=== PATIENT | female | born 1995 | race Caucasian/White ===

== ENCOUNTER 2018-05-31 21:47 | Day surgery (SDC) | payer OTHER ==
[2018-05-31 22:34] VITALS: BP 114/68; TEMP 98.6; BMI 30.3
--- NOTE | 2018-06-01 07:33 | SS ---
DATE OF EVALUATION: 05/31/2018 REGULAR PHYSICIAN: Lane Guerrero M.D. EVALUATING PHYSICIAN: David Miranda M.D. CHIEF COMPLAINT: Contractions at home since earlier this evening. HISTORY OF PRESENT ILLNESS: Ms. Burciaga is a 22-year-old white G2, P1-0-0-1 with an estimated date o f confinement of 06/12/2018 who presents complaining of uterine contractions since earlier tonight. She denies ruptured membranes or vaginal bleeding. Of note, is the fact that she had a cerclage shanell humberto at 37 weeks. Her care has been with Dr. Guerrero. PAST OBSTETRICAL HISTORY: Includes her last complicated by an emergency cerclage although she did go on to deliver at term. PAST MEDICAL HISTORY: None. PAST SURGICAL HISTORY: Cerclage placement x2. CURRENT MEDICATIONS: vitamins. ALLERGIES: PENICILLIN which gives her hives. SOCIAL HISTORY: She denies tobacco or alcohol use. FAMILY HISTORY: Unremarkable. REVIEW OF SYSTEMS: She denies nausea, vomiting, fever, chills, vaginal bleeding or decreased m ovement. PHYSICAL EXAMINATION: VITAL SIGNS: Stable. She is afebrile. GENERAL: She is pleasant and certainly in no acute distress. ABDOMEN: Soft, nontender and gravid. PELVIC: The cervix is approximately 1 cm dilated, minimally effaced and posterior per the labor nurs e's exam. heart rate tracing is reassuring with spontaneous accelerations. Over a 30 minute p eriod of observation, she only has a single contraction on the monitor. ASSESSMENT: 1. A 38-week intrauterine . 2. No evidence of active labor at this time. PLAN: The patient will be discharged home. She was given complete labor precautions. Dr. Guerrero was notified of her findings tonight.
== END 2018-05-31 23:00 | disposition home or self-care (01) ==
LOC: L&D/OP 21:47
PROVIDERS: ATTEND Obstetrics & Gynecology
DX: O47.1 False labor at or after 37 completed weeks of gestation (principal); Z88.0 Allergy status to penicillin; Z3A.38 38 weeks gestation of pregnancy
CPT/HCPCS: 99282

== ENCOUNTER 2018-06-04 00:13 | Inpatient (IN) | payer OTHER ==
[2018-06-06 07:07] VITALS: BMI 30.2
[2018-06-06] MEDS ORDERED: Acetaminophen 500 MG TAB PO PRN (07:07)
[2018-06-06] MEDS ORDERED: Lidocaine 1% (PF) 30 ML VIAL SC PRN (07:07)
[2018-06-06] MEDS ORDERED: Docusate 100 MG CAP PO PRN (07:07)
[2018-06-06] MEDS ORDERED: Misoprostol 200 MCG TAB PR PRN (07:07)
[2018-06-06] MEDS ORDERED: Promethazine HCl 25 MG/ML VIAL IM PRN (07:07)
[2018-06-06] MEDS ORDERED: Ondansetron HCl/PF 4 MG/2 ML Vial IVP PRN ×2 (07:07→13:44)
[2018-06-06] MEDS ORDERED: NS w/ Oxytocin 10 units 500 ML IV SCH (07:07)
[2018-06-06] MEDS ORDERED: NS / Oxytocin 40 units/1000ml 1,000 ML IV PRN (07:07)
[2018-06-06] MEDS ORDERED: Diphenoxylate HCl/Atropine Tablet PO PRN ×2 (07:07)
[2018-06-06] MEDS ORDERED: Ibuprofen 800 MG TAB PO PRN (07:07)
[2018-06-06] MEDS ORDERED: HYDROcodone/Acetaminophen 5/325 mg Tablet PO PRN ×2 (07:07)
[2018-06-06] MEDS ORDERED: Butorphanol Tartrate 1 MG/ML VIAL SLOW IVP PRN (07:07)
[2018-06-06] MEDS ORDERED: Bupivacaine 0.5% 20 ML, fentaNYL Citrate/PF 400 MCG in Sodium Chloride 0.9% 72 ML EPIDURAL SCH (07:15)
[2018-06-06] MEDS ORDERED: DISCONTINUE ALL PREVIOUS NARCOTICS FS SCH (07:15)
[2018-06-06] MEDS: Lactated Ringer's 1,000 ML IV SCH ×2 (07:31→10:10)
[2018-06-06] MEDS ORDERED: Clindamycin/D5W 900 mg/50 ml Premix Bag ONE (07:44)
[2018-06-06] MEDS ORDERED: Clindamycin/D5W 900 MG in Premix Bag 1 BAG IVPB SCH (08:00)
[2018-06-06 08:35] LABS: HBSAg Index 0.21 S/CO (0-0.99); Hep B Surf Ag Non-Reactive S/CO (NonReactive)
[2018-06-06 08:36] LABS: Syphilis Antibody Nonreactive (Nonreactive); Syphilis Antibody Index 0.04 S/CO (<1.00 Non-Reactive)
[2018-06-06] MEDS ORDERED: Dextrose 5%-Lactated Ringers 1,000 ML IV SCH (08:45)
[2018-06-06 08:57] LABS: Hemoglobin 8.3 g/dL (12.0-16.0); Mean Corpuscular HGB CONC 32.7 g/dL (32.0-36.0); Mean Corpuscular Hemoglobin 23.8 pg (27.0-31.0); Mean Corpuscular Volume 72.8 fL (78.0-98.0); Mean Platelet Volume 10.3 fL (7.4-10.4); Platelet Count 178 thou/uL (130-400); RBC Distribution Width 17.7 % (11.5-14.5); Red Blood Cell (RBC) Count 3.46 mill/uL (4.20-5.40); White Blood Cell (WBC) Count 12.5 thou/uL (4.8-10.8)
[2018-06-06] MEDS ORDERED: Bupivacaine 0.25% HCL 30 ML VIAL ONE (11:11)
[2018-06-06] MEDS ORDERED: Methylergonovine 0.2 MG TAB ONE (13:13)
[2018-06-06] MEDS ORDERED: Methylergonovine 0.2 MG/ML VIAL ONE (13:14)
[2018-06-06] MEDS ORDERED: Milk Of Magnesia 30 ML UDCUP PO PRN (13:44)
[2018-06-06] MEDS ORDERED: Zolpidem Tartrate 5 MG TAB PO PRN (13:44)
[2018-06-06] MEDS ORDERED: Bisacodyl 10 MG SUPP PR PRN (13:44)
[2018-06-06] MEDS ORDERED: Preparation H Ointment 28 GM TUBE PR PRN (13:44)
[2018-06-06] MEDS ORDERED: Lanolin Ointment 7 GM TUBE TOP PRN (13:44)
[2018-06-06] MEDS ORDERED: Benzocaine/Menthol 20-0.5% 60 ML CAN TOP PRN (13:44)
[2018-06-06] MEDS ORDERED: Acetaminophen/Codeine 30-300mg Tablet PO PRN ×2 (13:44)
[2018-06-06] MEDS ORDERED: diphenhydrAMINE 25 MG CAP PO PRN (13:44)
[2018-06-06] MEDS ORDERED: NS / Oxytocin 40 units/1000ml 1,000 ML IV SCH (13:45)
[2018-06-06] MEDS ORDERED: NS / Oxytocin 40 units/1000ml 1,000 ML ONE (15:05)
[2018-06-06] MEDS: Ibuprofen 800 MG TAB PO SCH ×2 (16:29→21:33)
[2018-06-06] MEDS: Ferrous Sulfate 325 MG TAB PO SCH (18:44)
[2018-06-06] MEDS: Docusate Calcium (SURFAK) 240 MG CAP PO SCH (21:33)
[2018-06-07] MEDS: Ibuprofen 800 MG TAB PO SCH ×2 (05:51→13:44)
[2018-06-07] MEDS: Lactated Ringer's 1,000 ML IV SCH ×2 (05:53→16:49)
[2018-06-07] MEDS: Ferrous Sulfate 325 MG TAB PO SCH (08:50)
[2018-06-07] MEDS: Docusate Calcium (SURFAK) 240 MG CAP PO SCH (08:51)
[2018-06-07] MEDS ORDERED: Prenatal Vitamin 1 TAB PO SCH (09:00)
[2018-06-07] MEDS ORDERED: Adacel (T-DAP) 0.5 ML VIAL IM ONE (09:00)
[2018-06-07] MEDS ORDERED: Acetaminophen 325 MG TAB PO PRN (09:09)
[2018-06-07 12:17] VITALS: BP 100/57; TEMP 97.6
== END 2018-06-07 18:30 | disposition home or self-care (01) | DRG 775 ==
LOC: EDSTATUS 15:40 → L&D 06-06 05:51 → 3SE 06-06 16:03
PROVIDERS: ADMIT Obstetrics & Gynecology; ATTEND Obstetrics & Gynecology
PROC: 10E0XZZ Delivery of Products of Conception, External Approach (ICD-10-PCS; principal; 2018-06-06)
PROC: 3E033VJ Introduction of Other Hormone into Peripheral Vein, Percutaneous Approach (ICD-10-PCS; 2018-06-06)
PROC: 10907ZC Drainage of Amniotic Fluid, Therapeutic from Products of Conception, Via Natural or Artificial Opening (ICD-10-PCS; 2018-06-06)
DX: O99.824 Streptococcus B carrier state complicating childbirth (principal); Z3A.39 39 weeks gestation of pregnancy; Z37.0 Single live birth
CPT/HCPCS: 36415; 51702; 85027; 86780; 86850; 86900; 86901; 87340; J2001; J2210; J2405; J3010; J3490; J7050; S0020

== ENCOUNTER 2018-10-18 20:15 | Observation (INO) | payer OTHER ==
[2018-10-18 20:41] LABS: #Basophils 0.1 thou/uL (0.0-0.2); #Eosinphils 0.4 thou/uL (0.0-0.7); #Lymphocytes 2.3 thou/uL (1.20-3.40); #Monocytes 0.7 thou/uL (0.11-0.59); #Neutrophils 7.4 thou/uL (1.40-6.50); %Basophils 0.8 % (0.0-1.0); %Eosinophils 3.4 % (0.0-10.0); %Lymphocytes 21.5 % (21.0-51.0); %Monocytes 6.1 % (0.0-10.0); %Neutrophils 68.2 % (42.0-75.0); Hemoglobin 12.1 g/dL (12.0-16.0); Mean Corpuscular HGB CONC 33.3 g/dL (32.0-36.0); Mean Corpuscular Hemoglobin 28.6 pg (27.0-31.0); Mean Platelet Volume 9.7 fL (7.4-10.4); Platelet Count 228 thou/uL (130-400); RBC Distribution Width 14.8 % (11.5-14.5); Red Blood Cell (RBC) Count 4.22 mill/uL (4.20-5.40); White Blood Cell (WBC) Count 10.8 thou/uL (4.8-10.8)
[2018-10-18 20:55] LABS: Bilirubin Negative (Negative); Blood, Urine Negative (Negative); Clarity CLEAR (Clear); Glucose, Urine (Dipstick) Negative (Negative); Leukocyte Negative (Negative); Nitrite Negative (Negative); Protein, Urine (Dipstick) Negative (Neg-Trace); Specific Gravity, Urine 1.031 (1.002-1.036); Urobilinogen 0.2 mg/dL (0.2-1.0)
[2018-10-18 20:58] LABS: ALT (SGPT) 12 U/L (8-55); AST (SGOT) 19 U/L (5-34); Albumin 4.4 g/dL (3.5-5.0); Alkaline Phosphatase 98 U/L (40-150); Anion Gap 13 mmol/L (10-20); BUN (Urea Nitrogen) 15 mg/dL (7.0-18.7); Bilirubin, Total 0.2 mg/dL (0.2-1.2); Calc. Creatinine Clearance 0 mL/min (70-130); Calcium 9.1 mg/dL (7.8-10.44); Carbon Dioxide 25 mmol/L (22-29); Chloride 107 mmol/L (98-107); Estimated GFR-MDRD 63; Globulin 3.9 g/dL (2.4-3.5); Glucose 103 mg/dL (70-105); Lipase 48 U/L (8-78); Potassium 4.3 mmol/L (3.5-5.1); Protein, Total 8.3 g/dL (6.0-8.3); Sodium 141 mmol/L (136-145)
[2018-10-18 21:24] LABS: Pregnancy Test - Urine (BHCG) Negative (Negative); Pregu Control Background? CLEAR/WHITE (CLR/WHITE); Pregu Control Bar Appear? YES (CONTROL BAR); Specific Gravity 1.031 (1.002-1.036)
--- NOTE | 2018-10-18 23:10 | ULT ---
RIGHT UPPER QUADRANT ULTRASOUND: INDICATIONS: Right upper quadrant pain. FINDINGS: No focal hepatic lesion. There is evidence of gallbladder distention, cholelithiasis, and gallbladde r sludge. Wall thickening of the gallbladder is present, measuring approximately 5 mm. There is int ramural edema of the gallbladder also present. Rojas sign is reported as positive. The common duct measures 3 mm, within normal limits. IMPRESSION: Cholelithiasis and evidence of acute cholecystitis. Surgical consultation is warranted. POS: ANABEL
[2018-10-18] MEDS ORDERED: Ondansetron PF 4 MG/2 ML Vial ONE (23:35)
[2018-10-18] MEDS ORDERED: Morphine 4 MG/ML VIAL ONE (23:35)
--- NOTE | 2018-10-19 00:46 | HP ---
HISTORY OF PRESENT ILLNESS: A 23-year-old woman. She is G2, P2, presented to emergency department. The patient gives a history of recurrent epigastric and right upper quadrant abdominal pain, which is postprandial over the last 1 month. The pain has been persistent since upon awakening this morning, rated at 9/10 and associated with multiple episodes of nonbilious emesis. The pain at this time is of the greatest intensity and not relieved by [id number] analgesics as previously. The patient denies any fevers or chills. She endorses abdominal bloating and flatulence. PAST MEDICAL HISTORY: She denies any previous medical problems. PAST SURGICAL HISTORY: Cervical cerclage x2. SOCIAL HISTORY: She is a ewkk-je-llam mom of 2 little children. She denies any cigarette smoking, ethanol, or illicit drug abuse. FAMILY HISTORY: Significant for mother who in her 50s with complications of gastric carcinoma and Crohn disease. Father has thyroid disease. Maternal grandmother with essential hypertension. She has no family history of heart disease. OUTPATIENT MEDICATIONS: None except for aikj-mxx-oirxlns analgesics. ALLERGIES: TO PENICILLIN. REVIEW OF SYSTEMS: Ten-point review of systems essentially unremarkable except as stated in past medical history and chief complaint. PHYSICAL EXAMINATION: GENERAL: This reveals a 23-year-old normally developed woman, who is otherwise coherent and interactive and appears stated age. The patient is alert and oriented x3. She appears to be in no acute distress at time of my evaluation. HEENT: Reveals normocephalic and atraumatic. The patient's pupils are equal, round, and reactive to light and accommodation. Extraocular muscles are intact bilaterally. She has no scleral icterus present. HEART: Reveals regular rate and rhythm. No murmurs or gallops auscultated. LUNGS: Clear to auscultation bilaterally. Her breathing regular and nonlabored. ABDOMEN: Soft with right upper quadrant tenderness to palpation. She has a positive Rojas's sign. Liver and spleen are otherwise nonpalpable below costal margins. EXTREMITIES: Reveal 2+ radial and pedal pulses bilaterally. Ankle edema is present. NEUROLOGIC: Reveals no focal deficits present. LABORATORY FINDINGS: Today includes a CBC with 10,800 white blood cells, hemoglobin and hematocrit 12.1 and 36.3 respectively, and platelet count is 228,000. Metabolic profile; sodium 141, potassium is 4.3, chloride is 107, bicarb is 25, BUN 15, creatinine is 1.08, and glucose is 103. AST and ALT normal at 19 and 12 respectively. Serum lipase is also normal at 48. I personally reviewed the abdominal ultrasound, which is remarkable for multiple intraluminal gallstones present. There is a relatively large stone impacted in the gallbladder neck. The patient has gallbladder wall thickening and pericholecystic fluid present. The common bile duct size is normal in diameter for this patient's age at 3.6 mm. IMPRESSIONS: Acute cholecystitis with cholelithiasis. RECOMMENDATION: Laparoscopic cholecystectomy. I have informed the patient of the above findings and recommendations. I have also informed her of the risks and benefits of proposed surgery to include but not limited to bleeding, infection, injury to bile duct or surrounding structures. The patient indicates understanding of information I provided her today in the presence of her nurse. I have answered her questions. The patient is going to consent for her admission and surgical intervention. Job ID: [id number]
[2018-10-19] MEDS ORDERED: Fentanyl 100 MCG/2 ML VIAL ONE ×4 (01:54→07:03)
[2018-10-19] MEDS ORDERED: Ondansetron HCl/PF 4 MG/2 ML Vial IVP PRN ×2 (01:59→05:37)
[2018-10-19] MEDS ORDERED: Promethazine HCl 25 MG/ML VIAL IM PRN ×3 (01:59→06:33)
[2018-10-19] MEDS ORDERED: Promethazine HCl 25 MG/ML VIAL SLOW IVP PRN ×2 (01:59→05:37)
[2018-10-19] MEDS ORDERED: Famotidine/PF 20 mg/2ml Vial ONE ×2 (05:01→05:11)
[2018-10-19] MEDS ORDERED: Bupivacaine/Epinephrine 0.25% 30 ML VIAL ONE (05:30)
[2018-10-19] MEDS ORDERED: Dextrose 5% in Water 1,000 ML IV PRN (06:33)
[2018-10-19] MEDS ORDERED: Calcium Carbonate 500 MG ChewTAB PO PRN (06:33)
[2018-10-19] MEDS ORDERED: Dextrose 50% Abboject 50 ML SYRINGE SLOW IVP PRN (06:33)
[2018-10-19] MEDS ORDERED: hydrALAZINE 20 MG/ML VIAL SLOW IVP PRN (06:33)
[2018-10-19] MEDS ORDERED: Ondansetron PF 4 MG/2 ML Vial IVP PRN (06:33)
[2018-10-19] MEDS ORDERED: Mag-Al 1200 mg/1200 mg/30 ML UDCUP PO PRN (06:33)
[2018-10-19] MEDS ORDERED: traMADol HCl 50 MG TAB PO PRN ×2 (06:36)
[2018-10-19] MEDS ORDERED: Acetaminophen 500 MG TAB PO SCH ×2 (06:45→07:00)
[2018-10-19] MEDS ORDERED: Ibuprofen 600 MG TAB PO SCH (07:00)
--- NOTE | 2018-10-19 07:15 | OP ---
DATE OF PROCEDURE: 10/19/2018 PREOPERATIVE DIAGNOSES: Acute cholecystitis with cholelithiasis. POSTOPERATIVE DIAGNOSES: Acute cholecystitis with cholelithiasis. OPERATION PERFORMED: Laparoscopic cholecystectomy. ANESTHESIA: General endotracheal. ESTIMATED BLOOD LOSS: 10 mL. FLUIDS GIVEN: 1100 mL of crystalloids. COUNTS: Sponge and instrument counts were verified as correct x2 per. COMPLICATIONS: None apparent at the time of operation. INDICATIONS FOR OPERATION: A 23-year-old woman presented with recurrent epigastric right upper quadrant abdominal pain. Clinical and radiographic examination were consistent with acute cholecystitis with cholelithiasis for which the patient was brought to operating room for cholecystectomy. Findings are consistent with gallbladder and the usual anatomic location, completely encased by omental adhesions. Gallbladder was markedly distended and tense. DESCRIPTION OF OPERATION: Informed consent was obtained for the patient, who was brought to the operating room and placed in supine position. Following general anesthesia, abdomen was sterilely prepped and draped in usual fashion. Skin below the umbilicus was infiltrated with 0.25% Marcaine with epinephrine. A small curvilinear infraumbilical incision was made using 11 scalpel. Umbilical stalk was grasped with Dilan and elevated. Veress needle was inserted through the incision first in the peritoneal cavity through which the abdomen was insufflated with 3 L of CO2 gas. Intraabdominal pressure noted at 2 mmHg. Following abdominal insufflation, Veress needle was removed and a 5-mm trocar was introduced using Visiport under laparoscopy. Laparoscopy confirmed proper placement of the port. No injuries to underlying structures. Additional laparoscopy reveals markedly distended gallbladder in the usual anatomic location, completely encased by omental adhesions. Under direct laparoscopy, a 10-mm epigastric and two 5-mm right lateral subcostal ports were placed after the overlying skin was infiltrated 0.25% Marcaine with epinephrine. Appropriate incision was made. The patient was placed in the reverse Trendelenburg position, rotated to her left. Using a [place] dissector with cautery, omental adhesions were taken down exposing the fundus of the gallbladder. I introduced Prestige grasper through the right lateral subcostal port, attempted to grasp the fundus of the gallbladder, which was markedly distended and tense. I decided to decompress the gallbladder using an Endo-suction catheter with cautery, evacuating excessive white bile. Prestige grasper was then applied to the fundus of the gallbladder, which was elevated cephalad. Omental adhesions were carefully dissected free from the remainder of the gallbladder. A second Prestige grasper was introduced through the medial subcostal port grasping the Irma's pouch, which was retracted laterally. Cystic duct was dissected free from surrounding structures at the triangle of Calot. The duct was divided between clips. Applying 2 clips proximal and 1 clip at the junction of the cystic duct and gallbladder. The cystic artery was also dissected free from surrounding structures and divided between clips in a similar fashion. The gallbladder itself was removed from the liver bed using the cautery with good hemostasis. Gallbladder was delivered off the abdominal cavity using an Endo Catch. Operative site was inspected for good hemostasis. No bile stains noted. Finding no other pathology, laparoscopy was terminated. Fascia of the epigastric port was closed using 0 Vicryl suture and Endo Close device under direct laparoscopy. Abdomen was desufflated. All ports and instruments were removed and accounted for. Skin incisions were closed using 4-0 Monocryl suture in subcuticular fashion. Dermabond was applied over incisional closure. The patient tolerated the operation without any apparent complication and was returned to recovery room in satisfactory condition. Job ID: [id number]
[2018-10-19] MEDS ORDERED: HYDROcodone/Acetaminophen 5/325 mg Tablet ONE (07:54)
[2018-10-19] MEDS ORDERED: Promethazine HCl 25 MG/ML VIAL ONE (07:55)
[2018-10-19] MEDS ORDERED: Famotidine 20 MG TAB PO SCH (09:00)
[2018-10-19] MEDS ORDERED: Famotidine/PF 20 mg/2ml Vial SLOW IVP SCH (09:00)
[2018-10-19] MEDS ORDERED: Ondansetron PF 4 MG/2 ML Vial ONE (14:33)
[2018-10-19] MEDS ORDERED: Glycopyrrolate 0.2 MG/ML 5 ML SYRINGE ONE (14:33)
[2018-10-19] MEDS ORDERED: Naloxone HCl 0.4 mg/ml Vial ONE (14:33)
[2018-10-19] MEDS ORDERED: Ketorolac Tromethamine 30 MG/ML VIAL ONE (14:33)
[2018-10-19] MEDS ORDERED: PHENYLEPHRINE-NS 100 MCG/ML 10 ML SYRINGE ONE (14:33)
[2018-10-19] MEDS ORDERED: PROPOFOL 200 MG/20 ML VIAL ONE (14:33)
[2018-10-19] MEDS ORDERED: Dexamethasone 20 MG/5 ML VIAL ONE (14:33)
[2018-10-19] MEDS ORDERED: Lidocaine 1% PF 5 ML VIAL ONE (14:33)
== END 2018-10-19 11:10 | disposition home or self-care (01) ==
LOC: ERS 20:15 → ERHOLD 23:43 → INTOOBSV 23:43
PROVIDERS: ADMIT Surgery; ATTEND Surgery
PROC: 0FT44ZZ Resection of Gallbladder, Percutaneous Endoscopic Approach (ICD-10-PCS; principal; 2018-10-19)
DX: K80.12 Calculus of gallbladder with acute and chronic cholecystitis without obstruction (principal); K66.0 Peritoneal adhesions (postprocedural) (postinfection); Z79.899 Other long term (current) drug therapy; Z88.0 Allergy status to penicillin
CPT/HCPCS: 36415; 76705; 80053; 81003; 81025; 83690; 85025; 88304; 96374; 96375; 96376; J0131; J1100; J1885; J2001; J2270; J2310; J2405; J2550; J2704; J3010; S0028

== ENCOUNTER 2018-10-23 19:26 | Emergency (ER) | payer OTHER ==
[2018-10-23 20:20] LABS: #Basophils 0.1 thou/uL (0.0-0.2); #Eosinphils 0.3 thou/uL (0.0-0.7); #Lymphocytes 2.4 thou/uL (1.20-3.40); #Monocytes 0.5 thou/uL (0.11-0.59); #Neutrophils 3.2 thou/uL (1.40-6.50); %Basophils 1.2 % (0.0-1.0); %Eosinophils 4.2 % (0.0-10.0); %Lymphocytes 37.7 % (21.0-51.0); %Monocytes 7.1 % (0.0-10.0); %Neutrophils 49.9 % (42.0-75.0); Hemoglobin 12.3 g/dL (12.0-16.0); Mean Corpuscular HGB CONC 32.6 g/dL (32.0-36.0); Mean Corpuscular Hemoglobin 28.3 pg (27.0-31.0); Mean Corpuscular Volume 86.6 fL (78.0-98.0); Mean Platelet Volume 9.1 fL (7.4-10.4); Platelet Count 235 thou/uL (130-400); RBC Distribution Width 14.8 % (11.5-14.5); Red Blood Cell (RBC) Count 4.35 mill/uL (4.20-5.40); White Blood Cell (WBC) Count 6.4 thou/uL (4.8-10.8)
[2018-10-23 20:57] LABS: ALT (SGPT) 192 U/L (8-55); AST (SGOT) 69 U/L (5-34); Albumin 4.6 g/dL (3.5-5.0); Alkaline Phosphatase 160 U/L (40-150); Anion Gap 14 mmol/L (10-20); BUN (Urea Nitrogen) 15 mg/dL (7.0-18.7); Bilirubin, Total 0.3 mg/dL (0.2-1.2); Calc. Creatinine Clearance 0 mL/min (70-130); Calcium 10.2 mg/dL (7.8-10.44); Carbon Dioxide 29 mmol/L (22-29); Chloride 101 mmol/L (98-107); Estimated GFR-MDRD 77; Glucose 93 mg/dL (70-105); Potassium 3.8 mmol/L (3.5-5.1); Protein, Total 8.6 g/dL (6.0-8.3); Sodium 140 mmol/L (136-145)
== END 2018-10-23 22:14 | disposition home or self-care (01) ==
LOC: ERS 19:26
DX: K62.5 Hemorrhage of anus and rectum (principal); F32.9 Major depressive disorder, single episode, unspecified; F41.9 Anxiety disorder, unspecified
CPT/HCPCS: 36415; 80053; 85025; 99283